=== PATIENT | female | born 1990 | race African-American/Black ===

== ENCOUNTER 2016-09-20 21:42 | Emergency (ER) | payer SELFPAY ==
[~2016-09-20] VITALS: Ht 170.2 cm; Wt 117.9 kg
[2016-09-20 21:49] VITALS: BP 151/90
[2016-09-21] MEDS ORDERED: ALBUTEROL SULFATE/IPRATROPIU 3 ML SOL IH ONE ×3 (00:45→01:50)
--- NOTE | 2016-09-21 01:00 | NUR ---
TO ER OF1
[2016-09-21] MEDS ORDERED: methylPREDNISolone SS 125 MG in WATER STERILE 2 ML IM ONE (01:05)
--- NOTE | 2016-09-21 01:06 | NUR ---
MOVED TO ER BED 7
--- NOTE | 2016-09-21 01:09 | NUR ---
Patient being evaluated by physician at bedside.
--- NOTE | 2016-09-21 01:22 | NUR ---
26Y/F PT. PRESENTS TO ED WITH C/O CHEST PAIN AND SOB X 1 DAY. PT. HX. ASTHMA, HAVING SOB SINCE YESTERDAY WITH COUGH, NO FEVER. AAO X4, AMBULATORY WITH STEADY GAIT. RESPIRATIONS ROOM AIR, LABORED, BL LUNGS WHEEZES. SKIN WARM AND DRY. VSS, C/O CHESTPAIN 11/01, ER MADE AWARE OF PT. STATUS.
[2016-09-21 01:27] LABS: BASOPHILS # (AUTO) 0.1 K/uL (0.00-0.22); BASOPHILS % (AUTO) 1.5 % (0.0-2.0); EOSINOPHILS # (AUTO) 1.5 K/uL (0-0.4); HEMOGLOBIN 12.6 g/dL (12.0-16.0); LYMPHOCYTES # (AUTO) 3.2 K/uL (2.5-16.5); LYMPHOCYTES % (AUTO) 35.8 % (20.5-51.1); MEAN CORPUSCULAR HEMOGLOBIN 25 pg (27-31); MEAN CORPUSCULAR HGB CONC 32 g/dL (33-37); MEAN CORPUSCULAR VOLUME 80 fL (80-94); MONOCYTES # (AUTO) 0.5 K/uL (0.8-1.0); MONOCYTES % (AUTO) 5.8 % (1.7-9.3); NEUTROPHILS # (AUTO) 3.8 K/uL (1.8-7.7); NEUTROPHILS % (AUTO) 40.3 % (42.2-75.2); PLATELET COUNT (AUTO) 341 K/uL (140-450); RED CELL DISTRIBUTION WIDTH 17.6 % (11.6-13.7); WHITE BLOOD COUNT (AUTO) 9.1 K/uL (4.8-10.8)
[2016-09-21 01:52] LABS: EOSINOPHILS % (AUTO) 16.6 % (0.0-4.0)
[2016-09-21 02:03] LABS: POTASSIUM 3.6 mmol/L (3.5-5.1)
[2016-09-21 02:04] LABS: CALCIUM 8.9 mg/dL (8.5-10.1); CARBON DIOXIDE 27.6 mmol/L (21-32); CREATININE 1.1 mg/dL (0.6-1.3); TOTAL BILIRUBIN 0.3 mg/dL (0.0-1.0)
[2016-09-21 02:05] LABS: ALBUMIN 4.2 g/dL (3.4-5.0); TOTAL PROTEIN, SERUM 8.4 g/dL (6.4-8.2)
--- NOTE | 2016-09-21 02:07 | NUR ---
PT CALLED FOR 3RD HHN TX.
--- NOTE | 2016-09-21 03:15 | NUR ---
Patient discharged with v/s stable. Written and verbal after care instructions given and explained. Patient alert, oriented and verbalized understanding of instructions. Ambulatory with steady gait. All questions addressed prior to discharge. ID band removed. Patient advised to follow up with PMD. Rx of ALBUTEROL 90 MCG/ACTUATIN, PREDNISONE 20 MG given. Patient educated on indication of medication including possible reaction and side effects. Opportunity to ask questions provided and answered.
[2016-09-21 03:17] VITALS: BP 135/79
== END 2016-09-21 03:15 | disposition home or self-care (01) ==
LOC: MED 21:42
DX: J45.901 Unspecified asthma with (acute) exacerbation (principal)
CPT/HCPCS: 36415; 71010; 80053; 84484; 85025; 93005; 94640; 96372; 99285; J2930; J7620; Q0092